=== PATIENT | male | born 1975 | race African-American/Black ===

== ENCOUNTER 2025-01-10 15:46 | Emergency (ER) | payer MEDICAID ==
[~2025-01-10] VITALS: Ht 180.3 cm; Wt 60.0 kg
[2025-01-10 16:00] VITALS: O2SAT 100
[2025-01-10] MEDS: ACETAMINOPHEN 325MG TABLET PO ONE (16:33)
[2025-01-10] MEDS ORDERED: IBUP-2028 MT (17:55)
[2025-01-10] MEDS: KETOROLAC 30MG/ML VIAL IM ONE (17:59)
[2025-01-10 18:04] VITALS: BP 125/78; PULSE 68; RESP 18; TEMP 37.2; O2SAT 99
== END 2025-01-10 18:05 | disposition home or self-care (01) ==
LOC: ER 15:46
DX: M79.652 Pain in left thigh (principal)
CPT/HCPCS: 99284; 73502; 73551; 96372; J1885